=== PATIENT | female | born 1995 | race Caucasian/White ===

== ENCOUNTER 2016-12-23 20:57 | Emergency (ER) | payer OTHER ==
[~2016-12-23] VITALS: Ht 152.4 cm; Wt 51.9 kg
[~2016-12-23 20:57] MED LIST: IBUP-1050 PO
[2016-12-23 21:03] VITALS: TEMP 36.8; Ht 152.4 cm; Wt 51.9 kg
[2016-12-23] MEDS ORDERED: ONDANSETRON INJ 2 MG/ML 2 ML VIAL IV STA (21:11)
[2016-12-23] MEDS ORDERED: MoRPHine SULFATE 4 MG/ML 1 ML CARP\\VIAL IV STA (21:11)
[2016-12-23] MEDS ORDERED: CYCL5TAB PO (21:34)
[2016-12-23] MEDS ORDERED: IBUP-1428 PO (21:34)
[2016-12-23 21:40] LABS: BASO % 0.3 %; BASO ABS # 0.03 K/uL (0-0.2); COMPLETE YES; EOS % 3.6 %; HEMATOCRIT 36.1 % (37-47); IG% 0.2 %; LYMPH % 33.8 %; MEAN CELL VOLUME 87.4 fL (80-100); MEAN CORPUSCULAR HEMOGLOBIN 29.1 pg (25-34); MEAN CORPUSCULAR HGB CONC 33.2 g/dl (32-36); MEAN PLATELET VOLUME 9.3 fL (7.4-10.4); NEUT % 58.1 %; PLATELET COUNT 454 K/uL (130-400); RED BLOOD COUNT 4.13 M/uL (4.2-5.4); WHITE BLOOD COUNT 10.36 K/uL (4.8-10.8)
--- NOTE | 2016-12-23 21:57 | DIAGNOSTIC IMAGING REPORT ---
CT SCAN OF THE ABDOMEN AND PELVIS WITHOUT CONTRAST CLINICAL HISTORY: Right flank pain COMPARISON STUDY: No previous studies for comparison. TECHNIQUE: CT scan of the abdomen and pelvis was performed from the lung bases to the proximal femurs. Images are reviewed in the axial, sagittal, and coronal planes. IV contrast was not administered for this examination. CT DOSE: 323.94 mGy.cm FINDINGS: Lower chest: The heart is normal in size and configuration, without pericardial effusion. The lung bases and pleural spaces are clear. Liver: The unenhanced liver is normal in size, contour, and attenuation. There is no intrahepatic biliary ductal dilatation. Gallbladder: Contracted Spleen: Normal in size and attenuation. Pancreas: Unremarkable. Adrenal glands: Unremarkable. Kidneys: No renal, ureteral, or bladder calculi are visualized. Bowel: There are no transition zones indicate bowel obstruction. There is a low-lying cecum. The appendix is difficult to visualize with certainty although portions of the appendix appeared to be visualized on coronal reformatted images. There are no findings to indicate acute appendicitis given the limitations of a noncontrast study. Peritoneum: There is no intraperitoneal free air or abdominal ascites. Vasculature: The abdominal aorta is normal in course and caliber. Adenopathy: None. Pelvic viscera: The bladder, and pelvic viscera are unremarkable. Skeletal structures: There is bilateral L5 spondylolysis. There is a grade 1 spondylolisthesis of L5 on S1. IMPRESSION: 1. Study limited by the lack of intravenous and oral contrast 2. No evidence of bowel obstruction. No evidence of free air 3. No renal, ureteral, or bladder calculi identified 4. No evidence of acute appendicitis Electronically signed by: Miki Trammell M.D. 12/23/2016 9:56 PM Dictated Date/Time: 12/23/2016 9:51 PM
[2016-12-23 21:59] LABS: ALT/SGPT 28 U/L (12-78); BLOOD UREA NITROGEN 24 mg/dl (7-18); BUN/CREATININE RATIO 24.1 (10-20); CALCIUM 8.8 mg/dl (8.5-10.1); CARBON DIOXIDE 26 mmol/L (21-32); CHLORIDE 103 mmol/L (98-107); CREATININE 0.99 mg/dl (0.60-1.20); GLUCOSE 83 mg/dl (70-99); POTASSIUM 3.8 mmol/L (3.5-5.1); SODIUM 139 mmol/L (136-145)
[2016-12-23 22:02] LABS: ALKALINE PHOSPHATASE 71 U/L (45-117); AST/SGOT 17 U/L (15-37)
[2016-12-23] MEDS ORDERED: BCPILLS PO (22:08)
[2016-12-23 22:20] LABS: URINE APPEARANCE CLEAR (CLEAR); URINE BILIRUBIN NEG (NEG); URINE COLOR YELLOW; URINE EPITHELIAL CELL AUTO >30 /lpf (0-5); URINE NITRITE NEG (NEG); URINE SPECIFIC GRAVITY 1.029 (1.000-1.030); UROBILINOGEN NEG (NEG)
[2016-12-23 22:27] LABS: MANUAL MICROSCOPIC REQUIRED? NO; REVIEW REQ? NO
[2016-12-23] MEDS ORDERED: SULFAMETHOXAZOLE/TRIMETHOPRIM DS 800/160MG TAB PO STA (22:30)
[2016-12-23] MEDS ORDERED: SULF800T23 PO (22:32)
[2016-12-23 22:43] VITALS: BP 110/77; PULSE 86; O2SAT 97
--- NOTE | 2016-12-23 23:14 | EMERGENCY ROOM VISIT NOTE ---
History Report prepared by Tonio: Valarie No Under the Supervision of: Dr. Reji Garvey M.D. First contact with patient: 21:07 Chief Complaint: FLANK PAIN Stated Complaint: PAIN IN RIGHT SIDE AND BACK History of Present Illness The patient is a 21 year old female who presents to the Emergency Room with complaints of persistent right sided flank pain that started a few hours prior to arrival. She states the pain started after she ate dinner. She rates her discomfort as an 8/10 and reports the pain radiates into her right hip and down her right leg. The pain feels "dull", but is occasionally "sharp" in nature. She denies ever feeling similar pain before. The patient denies any fevers, nausea, vomiting, diarrhea, rectal bleeding or urinary symptoms. She has no history of kidney stones or previous surgeries on her abdomen. She denies any chance of being . She denies any abnormal vaginal discharge or bleeding. Source of History: patient Onset: few hours [employer] Position: back Symptom Intensity: 8/10 Quality: sharp, dull Timing: other (persistent) Associated Symptoms: No diarrhea, No nausea, No urinary symptoms, No vomiting Review of Systems See HPI for pertinent positives & negatives. A total of 10 systems reviewed and were otherwise negative. Past Medical & Surgical Medical Problems: (1) Low back pain Family History Cancer Heart disease Social History Smoking Status: Never Smoker Drug Use: none Marital Status: in relationship Housing Status: lives with family Occupation Status: employed Current/Historical Medications Scheduled Control Pills ( Control Pills), 1 TAB PO DAILY Sulfa/Trimethoprim (Bactrim Ds 800MG/160MG), 1 TAB PO BID Scheduled PRN Cyclobenzaprine Hcl (Flexeril), 5 MG PO TID PRN for Muscle Spasm Ibuprofen (Advil), 400-600 MG PO Q6H PRN for Headache or Pain Ibuprofen (Motrin), 800 MG PO TID PRN for Pain Allergies Coded Allergies: No Known Allergies (Unverified , 05/07/16) Physical Exam Vital Signs Date Time Temp Pulse Resp B/P Pulse Ox O2 Delivery O2 Flow Rate FiO2 12/23/16 22:43 86 16 110/77 97 12/23/16 21:03 36.8 105 18 118/59 99 Room Air Physical Exam Constitutional: Vital signs reviewed. Eyes: Pupils are equal round reactive to light. Conjunctiva are noninjected. ENT: Pharynx is clear without erythema or exudate. Mucous membranes are moist. Neck supple without meningeal signs. Respiratory: Clear to auscultation bilaterally. Breath sounds are equal bilaterally. Cardiovascular: Regular rate and rhythm. No rubs or gallops. GI: Soft, nondistended mild right-sided tenderness without guarding. Bowel sounds are present. Musculoskeletal: No peripheral edema. No midline tenderness to the thoracic or lumbosacral spine. Mild right-sided CVA tenderness. Integumentary: No cyanosis. Neurological: The patient is awake and alert. No focal deficits. Psychiatric: Normal affect. Medical Decision & Procedures ER Provider Diagnostic Interpretation: This CT scan was reviewed and interpreted by the radiologist and reviewed by myself. CT SCAN OF THE ABDOMEN AND PELVIS WITHOUT CONTRAST CLINICAL HISTORY: Right flank pain COMPARISON STUDY: No previous studies for comparison. TECHNIQUE: CT scan of the abdomen and pelvis was performed from the lung bases to the proximal femurs. Images are reviewed in the axial, sagittal, and coronal planes. IV contrast was not administered for this examination. CT DOSE: 323.94 mGy.cm FINDINGS: Lower chest: The heart is normal in size and configuration, without pericardial effusion. The lung bases and pleural spaces are clear. Liver: The unenhanced liver is normal in size, contour, and attenuation. There is no intrahepatic biliary ductal dilatation. Gallbladder: Contracted Spleen: Normal in size and attenuation. Pancreas: Unremarkable. Adrenal glands: Unremarkable. Kidneys: No renal, ureteral, or bladder calculi are visualized. Bowel: There are no transition zones indicate bowel obstruction. There is a low-lying cecum. The appendix is difficult to visualize with certainty although portions of the appendix appeared to be visualized on coronal reformatted images. There are no findings to indicate acute appendicitis given the limitations of a noncontrast study. Peritoneum: There is no intraperitoneal free air or abdominal ascites. Vasculature: The abdominal aorta is normal in course and caliber. Adenopathy: None. Pelvic viscera: The bladder, and pelvic viscera are unremarkable. Skeletal structures: There is bilateral L5 spondylolysis. There is a grade 1 spondylolisthesis of L5 on S1. IMPRESSION: 1. Study limited by the lack of intravenous and oral contrast 2. No evidence of bowel obstruction. No evidence of free air 3. No renal, ureteral, or bladder calculi identified 4. No evidence of acute appendicitis Electronically signed by: Miki Trammell M.D. 12/23/2016 9:56 PM Laboratory Results 12/23/16 21:30 Red Blood Count 4.13, Mean Corpuscular Volume 87.4, Mean Corpuscular Hemoglobin 29.1, Mean Corpuscular Hemoglobin Concent 33.2, Mean Platelet Volume 9.3, Neutrophils (%) (Auto) 58.1, Lymphocytes (%) (Auto) 33.8, Monocytes (%) (Auto) 4.0, Eosinophils (%) (Auto) 3.6, Basophils (%) (Auto) 0.3, Neutrophils # (Auto) 6.03, Lymphocytes # (Auto) 3.50, Monocytes # (Auto) 0.41, Eosinophils # (Auto) 0.37, Basophils # (Auto) 0.03 12/23/16 21:30 Test 12/23/16 21:15 12/23/16 21:30 Urine Color YELLOW Urine Appearance CLEAR (CLEAR) Urine pH 6.0 (4.5-7.5) Urine Specific [place] 1.029 (1.000-1.030) Urine Protein NEG (NEG) Urine Glucose (UA) NEG (NEG) Urine Ketones NEG (NEG) Urine Occult Blood TRACE (NEG) Urine Nitrite NEG (NEG) Urine Bilirubin NEG (NEG) Urine Urobilinogen NEG (NEG) Urine Leukocyte Esterase SMALL (NEG) Urine WBC (Auto) 10-30 /hpf (0-5) Urine RBC (Auto) 0-4 /hpf (0-4) Urine Hyaline Casts (Auto) 1-5 /lpf (0-5) Urine Epithelial Cells (Auto) >30 /lpf (0-5) Urine Bacteria (Auto) 1+ (NEG) Urine Test NEG (NEG) White Blood Count 10.36 K/uL (4.8-10.8) Red Blood Count 4.13 M/uL (4.2-5.4) Hemoglobin 12.0 g/dL (12.0-16.0) Hematocrit 36.1 % (37-47) Mean Corpuscular Volume 87.4 fL (80-100) Mean Corpuscular Hemoglobin 29.1 pg (25-34) Mean Corpuscular Hemoglobin Concent 33.2 g/dl (32-36) Platelet Count 454 K/uL (130-400) Mean Platelet Volume 9.3 fL (7.4-10.4) Neutrophils (%) (Auto) 58.1 % Lymphocytes (%) (Auto) 33.8 % Monocytes (%) (Auto) 4.0 % Eosinophils (%) (Auto) 3.6 % Basophils (%) (Auto) 0.3 % Neutrophils # (Auto) 6.03 K/uL (1.4-6.5) Lymphocytes # (Auto) 3.50 K/uL (1.2-3.4) Monocytes # (Auto) 0.41 K/uL (0.11-0.59) Eosinophils # (Auto) 0.37 K/uL (0-0.5) Basophils # (Auto) 0.03 K/uL (0-0.2) RDW Standard Deviation 40.8 fL (36.4-46.3) RDW Coefficient of Variation 12.7 % (11.5-14.5) Immature Granulocyte % (Auto) 0.2 % Immature Granulocyte # (Auto) 0.02 K/uL (0.00-0.02) Anion Gap 10.0 mmol/L (3-11) Est Creatinine Clear Calc Drug Dose 63.5 ml/min Estimated GFR () 93.1 Estimated GFR (Non- 80.3 BUN/Creatinine Ratio 24.1 (10-20) Calcium Level 8.8 mg/dl (8.5-10.1) Total Bilirubin 0.3 mg/dl (0.2-1) Direct Bilirubin < 0.1 mg/dl (0-0.2) Aspartate Amino Transf (AST/SGOT) 17 U/L (15-37) Alanine Aminotransferase (ALT/SGPT) 28 U/L (12-78) Alkaline Phosphatase 71 U/L (45-117) Total Protein 7.9 gm/dl (6.4-8.2) Albumin 3.5 gm/dl (3.4-5.0) Lipase 298 U/L (73-393) Laboratory results as reviewed by me. Medications Administered Medications (Trade) Dose Ordered Sig/Mitra Route Start Time Stop Time Status Last Admin Dose Admin Morphine Sulfate (MoRPHine SULFATE INJ) 4 mg ONE STAT IV 12/23/16 21:11 12/23/16 21:12 DC 12/23/16 21:30 4 MG Ondansetron HCl (Zofran Inj) 4 mg NOW STAT IV 12/23/16 21:11 12/23/16 21:12 DC 12/23/16 21:30 4 MG Trimethoprim/ Sulfamethoxazole (Septra Ds 800/ 160MG Tab) 1 tab NOW STAT PO 12/23/16 22:30 12/23/16 22:31 DC 12/23/16 22:40 1 TAB ED Course 2107: The patient was evaluated in room B9. A complete history and physical exam was performed. 2110: Zofran 4 mg IV, Morphine Sulfate 4 mg IV. 2214: I reevaluated the patient. She is feeling better. I discussed her results with her. 2229: I reevaluated the patient. I discussed her urine results. I also discussed her discharge instructions and she verbalized complete understanding and agreement. 2229: Septra Ds 800 mg/160 mg 1 tab PO. Medical Decision This is a 21-year-old female who presents with right flank pain. Differential diagnosis includes kidney stone, UTI, pyelonephritis, strain, appendicitis, gallbladder disease, lumbar disc disease. I did perform a limited focused review of portions of the patient's old chart on the electronic medical record. The patient has had no recent pertinent visits to this hospital. I did evaluate the patient as noted above. The patient is presenting with right flank pain. She has some minimal right CVA tenderness but denies any urinary symptoms. She does state that occasionally the pain radiates down her right leg which may suggest a musculoskeletal etiology such as lumbar radiculopathy. She denies any trauma and has no midline tenderness to the thoracic or lumbosacral spine. IV access was established. I did treat patient with IV morphine and Zofran. I did order and personally review the patient's urinalysis as described above. The results are equivocal. I did order a urine culture. Urine test is negative. I did treat her with Bactrim. I did order and review the patient's blood work as noted in the electronic medical record. I did order a CT of the abdomen and pelvis. I did review the images myself as well as the radiology report as described above. There is no evidence of appendicitis or kidney stone. I did reassess patient. She is feeling better. I did discuss the test results with her. I did recommend close follow up with her doctor. She will continue anti-inflammatories at home. She was given return instructions as outlined below and a prescription for Bactrim. Impression Primary Impression: Right flank pain Additional Impression: UTI (urinary tract infection) Scribe Attestation The scribe's documentation has been prepared under my direct and personally reviewed by me in its entirety. I confirm that the note above accurately reflects all work, treatment, procedures, and medical decision making performed by me. Departure Information Dispostion Home / Self-Care Prescriptions Sulfa/Trimethoprim (Bactrim Ds 800MG/160MG) Tab 1 TAB PO BID, #14 TAB Prov: Reji Garvey M.D. 12/23/16 Referrals No Doctor, Assigned (PCP) Patient Instructions ED Flank Pain Uncertain Cause, My [facility] Additional Instructions You have been examined and treated today on an emergency basis only. This is not a substitute for, or an effort to provide, complete comprehensive medical care. It is impossible to recognize and treat all injuries or illnesses in a single emergency department visit. It is therefore important that you follow up closely with your physician. Call as soon as possible for an appointment. Return for worsening symptoms or if you develop fever, vomiting, numbness or weakness in your legs or any other concerning symptoms. Problem Qualifiers Additional Impression: UTI (urinary tract infection) Urinary tract infection type: site unspecified
== END 2016-12-23 22:44 | disposition home or self-care (01) ==
LOC: C.EDB 20:58
DX: N39.0 Urinary tract infection, site not specified (principal)

== ENCOUNTER 2017-01-22 16:21 | Emergency (ER) | payer OTHER ==
[~2017-01-22] VITALS: Ht 152.4 cm; Wt 52.3 kg
[~2017-01-22 16:21] MED LIST changes: +BCPILLS PO; +CYCL5TAB PO; +IBUP-1428 PO; +SULF800T23 PO
[2017-01-22 16:32] VITALS: TEMP 36.7; Ht 152.4 cm; Wt 52.3 kg
[2017-01-22 18:20] VITALS: BP 109/59; PULSE 103; O2SAT 99
[2017-01-22 18:40] LABS: HEMATOCRIT 35.1 % (37-47); MEAN CELL VOLUME 86.7 fL (80-100); MEAN CORPUSCULAR HEMOGLOBIN 28.9 pg (25-34); MEAN CORPUSCULAR HGB CONC 33.3 g/dl (32-36); MEAN PLATELET VOLUME 9.2 fL (7.4-10.4); PLATELET COUNT 366 K/uL (130-400); RED BLOOD COUNT 4.05 M/uL (4.2-5.4)
[2017-01-22 18:48] LABS: URINE APPEARANCE TURBID (CLEAR); URINE BILIRUBIN NEG (NEG); URINE COLOR DK YELLOW; URINE EPITHELIAL CELL AUTO >30 /lpf (0-5); URINE NITRITE NEG (NEG); URINE PH 8.5 (4.5-7.5); URINE SPECIFIC GRAVITY 1.036 (1.000-1.030); UROBILINOGEN NEG (NEG); ZZUR CULT IF INDIC CLEAN CATCH NO
[2017-01-22 18:51] LABS: MANUAL MICROSCOPIC REQUIRED? NO; REVIEW REQ? NO
[2017-01-22 18:52] LABS: SULFASALICYLIC ACID POS (NEG)
[2017-01-22 18:57] LABS: BUN/CREATININE RATIO 16.9 (10-20); CALCIUM 8.9 mg/dl (8.5-10.1); CREATININE 0.79 mg/dl (0.60-1.20); POTASSIUM 3.9 mmol/L (3.5-5.1)
--- NOTE | 2017-01-22 19:01 | DIAGNOSTIC IMAGING REPORT ---
Right upper quadrant ultrasound GALLBLADDER-ABD LIMITED CLINICAL HISTORY: RUQ pain pain. Nausea. TECHNIQUE: Ultrasound COMPARISON STUDY: None FINDINGS: Contracted gallbladder possibly in part due to a recent meal. 5 mm gallbladder polyp. No shadowing gallstones. Common bile duct 4 mm. Liver is uniform throughout. Right kidney is negative for hydronephrosis. IMPRESSION: 1. Contracted gallbladder possibly due to a recent meal. 2. Small gallbladder polyp. 3. Otherwise negative study Electronically signed by: Terry Reno M.D. 01/22/2017 7:00 PM Dictated Date/Time: 01/22/2017 6:58 PM
[2017-01-22 19:09] LABS: BASO % 0.3 %; BASO ABS # 0.02 K/uL (0-0.2); COMPLETE YES; EOS % 4.2 %; IG% 0.1 %; LYMPH % 33.8 %; MONO % 6.5 %; NEUT % 55.1 %
--- NOTE | 2017-01-22 19:29 | EMERGENCY ROOM VISIT NOTE ---
History First contact with patient: 18:02 Chief Complaint: HIP PAIN Stated Complaint: RT SIDE & HIP PAIN History of Present Illness The patient is a 21 year old female who presents to the Emergency Room with complaints of pain under her right rib which radiates down the right side into the hip. The patient states that her her symptoms began 2 days ago and worsened yesterday. She states that she has a constant, dull pain with intermittent sharp pains. She rates it an 8/10. She denies any recent trauma or new exercise. She does report that she carries her 2-year-old son on the right side. She denies any urinary symptoms. Her last menstrual period was 2 weeks ago. The patient denies any nausea or vomiting. She is a smoker. She denies any history or family history of blood clots. The patient does report that she was seen here approximately one month ago for similar symptoms and at that time she was told she may have a urinary tract infection and was placed on antibiotics for this. Review of Systems A complete 10-point Review of Systems was discussed with the patient, with pertinent positives and negatives listed in the History of Present Illness. All remaining Review of Systems questions can be considered negative unless otherwise specified. Past Medical/Surgical History Medical Problems: (1) Low back pain Family History Cancer Heart disease Social History Smoking Status: Current Every Day Smoker Drug Use: none Marital Status: in relationship Housing Status: lives with family Occupation Status: employed Current/Historical Medications Scheduled PRN Cyclobenzaprine Hcl (Flexeril), 5 MG PO TID PRN for Muscle Spasm Ibuprofen (Motrin), 800 MG PO TID PRN for Pain Allergies Coded Allergies: No Known Allergies (Unverified , 05/07/16) Physical Exam Vital Signs Date Time Temp Pulse Resp B/P Pulse Ox O2 Delivery O2 Flow Rate FiO2 01/22/17 18:20 103 18 109/59 99 Room Air 01/22/17 16:32 36.7 100 18 127/78 100 Room Air Physical Exam VITALS: Vitals are noted on the nurse's note and reviewed by myself. Vital signs stable. GENERAL: This is a 21-year-old female, in no acute distress, nondiaphoretic, well-developed well-nourished. SKIN: Capillary reflex less than 2 seconds. HEENT: Normocephalic. PERRLA. EOMI. Nares patent. Mucous membranes moist. Neck is supple without nuchal rigidity. HEART: Regular rate and rhythm without murmurs gallops or rubs. LUNGS: Clear to auscultation bilaterally without wheezes, rales or rhonchi. No retractions or accessory muscle use. ABDOMEN: Positive bowel sounds x 4. Right upper quadrant tenderness. Negative Jane's sign. No guarding or rebound tenderness. NEURO: Patient was alert and oriented to person place and time. Medical Decision & Procedures ER Provider Diagnostic Interpretation: Right upper quadrant ultrasound GALLBLADDER-ABD LIMITED CLINICAL HISTORY: RUQ pain pain. Nausea. TECHNIQUE: Ultrasound COMPARISON STUDY: None FINDINGS: Contracted gallbladder possibly in part due to a recent meal. 5 mm gallbladder polyp. No shadowing gallstones. Common bile duct 4 mm. Liver is uniform throughout. Right kidney is negative for hydronephrosis. IMPRESSION: 1. Contracted gallbladder possibly due to a recent meal. 2. Small gallbladder polyp. 3. Otherwise negative study Laboratory Results 01/22/17 18:20 Red Blood Count 4.05, Mean Corpuscular Volume 86.7, Mean Corpuscular Hemoglobin 28.9, Mean Corpuscular Hemoglobin Concent 33.3, Mean Platelet Volume 9.2, Neutrophils (%) (Auto) 55.1, Lymphocytes (%) (Auto) 33.8, Monocytes (%) (Auto) 6.5, Eosinophils (%) (Auto) 4.2, Basophils (%) (Auto) 0.3, Neutrophils # (Auto) 4.25, Lymphocytes # (Auto) 2.60, Monocytes # (Auto) 0.50, Eosinophils # (Auto) 0.32, Basophils # (Auto) 0.02 01/22/17 18:20 Test 01/22/17 18:20 01/22/17 18:22 White Blood Count 7.70 K/uL (4.8-10.8) Red Blood Count 4.05 M/uL (4.2-5.4) Hemoglobin 11.7 g/dL (12.0-16.0) Hematocrit 35.1 % (37-47) Mean Corpuscular Volume 86.7 fL (80-100) Mean Corpuscular Hemoglobin 28.9 pg (25-34) Mean Corpuscular Hemoglobin Concent 33.3 g/dl (32-36) Platelet Count 366 K/uL (130-400) Mean Platelet Volume 9.2 fL (7.4-10.4) Neutrophils (%) (Auto) 55.1 % Lymphocytes (%) (Auto) 33.8 % Monocytes (%) (Auto) 6.5 % Eosinophils (%) (Auto) 4.2 % Basophils (%) (Auto) 0.3 % Neutrophils # (Auto) 4.25 K/uL (1.4-6.5) Lymphocytes # (Auto) 2.60 K/uL (1.2-3.4) Monocytes # (Auto) 0.50 K/uL (0.11-0.59) Eosinophils # (Auto) 0.32 K/uL (0-0.5) Basophils # (Auto) 0.02 K/uL (0-0.2) RDW Standard Deviation 42.6 fL (36.4-46.3) RDW Coefficient of Variation 13.3 % (11.5-14.5) Immature Granulocyte % (Auto) 0.1 % Immature Granulocyte # (Auto) 0.01 K/uL (0.00-0.02) Red Blood Cell Morphology Unremarkable D-Dimer 260 ug/L FEU (0-500) Anion Gap 3.0 mmol/L (3-11) Est Creatinine Clear Calc Drug Dose 79.6 ml/min Estimated GFR () 122.3 Estimated GFR (Non- 105.5 BUN/Creatinine Ratio 16.9 (10-20) Calcium Level 8.9 mg/dl (8.5-10.1) Total Bilirubin 0.2 mg/dl (0.2-1) Aspartate Amino Transf (AST/SGOT) 15 U/L (15-37) Alanine Aminotransferase (ALT/SGPT) 21 U/L (12-78) Alkaline Phosphatase 54 U/L (45-117) Total Protein 7.5 gm/dl (6.4-8.2) Albumin 3.7 gm/dl (3.4-5.0) Globulin 3.8 gm/dl (2.5-4.0) Albumin/Globulin Ratio 1.0 (0.9-2) Lipase 217 U/L (73-393) Urine Color DK YELLOW Urine Appearance TURBID (CLEAR) Urine pH 8.5 (4.5-7.5) Urine Specific [place] 1.036 (1.000-1.030) Urine Protein 1+ (NEG) Urine Glucose (UA) NEG (NEG) Urine Ketones TRACE (NEG) Urine Occult Blood NEG (NEG) Urine Nitrite NEG (NEG) Urine Bilirubin NEG (NEG) Urine Urobilinogen NEG (NEG) Urine Leukocyte Esterase TRACE (NEG) Urine WBC (Auto) 1-5 /hpf (0-5) Urine RBC (Auto) 0-4 /hpf (0-4) Urine Hyaline Casts (Auto) 5-10 /lpf (0-5) Urine Epithelial Cells (Auto) >30 /lpf (0-5) Urine Bacteria (Auto) NEG (NEG) Urine Test NEG (NEG) ED Course The patient was evaluated as above. Labs were drawn and IV access was obtained. Right upper quadrant ultrasound was performed and read by radiology as above. Discharge instructions were reviewed with the patient. The patient verbalized understanding of my assessment and treatment plan and was discharged home in good condition. Medical Decision Differential diagnosis includes cholecystitis, gastroenteritis, musculoskeletal pain, pulmonary embolism, urinary tract infection, among others. The patient is a 21-year-old female who presents today complaining of right upper quadrant/right rib pain. Labs revealed no leukocytosis, anemia or concerning electrolyte abnormalities. Urinalysis was not suggestive of infection. Urine was negative. D-dimer was negative. Right upper quadrant ultrasound was performed and was unremarkable. The patient has previously been seen here for similar symptoms and had a CT scan which was normal. I feel her pain is most likely musculoskeletal. She should follow-up with her primary care provider for further evaluation of this. The patient's case was reviewed with Dr. Latham, ED attending physician, who agreed with my assessment and treatment plan. Based on the patient's presentation and work up, I feel the patient is stable for outpatient treatment. The patient was educated to the emergency department for any worsening of their current condition or new/concerning symptoms. The patient will follow up with her primary care provider this week. Impression Primary Impression: Right flank pain Departure Information Dispostion Home / Self-Care Condition GOOD Referrals Susu Gonzalez, C.R.N.P. (PCP) Patient Instructions My [facility] Additional Instructions You have been treated in the Emergency Department for right rib/abdominal pain. Laboratory results and imaging studies have ruled out any emergent causes for your abdominal pain which would warrant admission or surgery. For pain control, you can use the following driz-dbr-fienxps medicines (if >12 yo): - Regular strength (325mg/tab) Tylenol (acetaminophen) 2 tabs every 4-6 hours as needed. Do not exceed 12 tablets in a 24 hour period. Avoid taking more than 4 grams (4000 mg) of Tylenol per day. This includes any other sources of acetaminophen you may take on a regular basis. - Regular strength (200 mg/tab) Advil (ibuprofen) 1-2 tabs every 4-6 hours as needed. Do not exceed a dose of 3200 mg per day. Drink plenty of water and stay well hydrated. Follow-up with your primary care provider within one week. Return to the emergency department if your symptoms persist despite treatment plan outlined above or if you develop any new/concerning symptoms.
== END 2017-01-22 19:38 | disposition home or self-care (01) ==
LOC: C.EDB 16:23
DX: M25.551 Pain in right hip (principal); F17.200 Nicotine dependence, unspecified, uncomplicated

== ENCOUNTER → 2017-02-12 | Outpatient (CLI) | payer OTHER ==
[~2017-02-12] MED LIST changes: -IBUP-1050 PO; -SULF800T23 PO
--- NOTE | 2017-02-12 19:52 | DIAGNOSTIC IMAGING REPORT ---
LEFT TIBIA AND FIBULA 2 VIEWS CLINICAL HISTORY: Left leg injury. FINDINGS: AP and lateral views of the left tibia and fibula are obtained. No prior studies are available for comparison at the time of dictation. The skeletal structures are well mineralized. No fracture is seen. The knee and ankle joints are grossly maintained. Pretibial soft tissue edema is noted. No radiodense foreign body is identified. IMPRESSION: Pretibial soft tissue swelling with no acute bony abnormality identified. Electronically signed by: Shashi Lopez M.D. 02/12/2017 7:51 PM Dictated Date/Time: 02/12/2017 7:50 PM
== END | disposition home or self-care (01) ==
LOC: C.RAD 16:58
PROVIDERS: ATTEND Nurse Practitioner
DX: S89.92XA Unspecified injury of left lower leg, initial encounter (principal); X58.XXXA Exposure to other specified factors, initial encounter; M79.89 Other specified soft tissue disorders

== ENCOUNTER 2017-02-17 19:55 | Emergency (ER) | payer OTHER ==
[~2017-02-17] VITALS: Ht 152.4 cm; Wt 52.2 kg
[~2017-02-17 19:55] MED LIST changes: -BCPILLS PO
[2017-02-17 20:01] VITALS: TEMP 36.6; Ht 152.4 cm; Wt 52.2 kg
--- NOTE | 2017-02-17 20:30 | EMERGENCY ROOM VISIT NOTE ---
History Report prepared by Tonio: Leonid Reese Under the Supervision of: Dr. John Mckee D.O. First contact with patient: 20:10 Chief Complaint: LEG PAIN,LEG INJURY Stated Complaint: L LEG AND OLGA LIDIA PAIN, SWELLING History of Present Illness The patient is a 21 year old female who presents to the Emergency Room with complaints of worsening left lower leg bruising beginning six days prior to arrival. She currently rates her discomfort as a 9/10 in severity. The patient associates left leg pain and intermittent left toes numbness with today's symptoms. She states that she was evaluated five days ago by her doctor. The patient notes her x-rays came back negative. She states she originally hit her left spence off of a trailer. The patient notes she noticed bruising following the incident, but yesterday she saw more bruising towards her ankle. She denies any other medical concerns at this time. Source of History: patient Onset: six days [employer] Position: leg (left lower) Symptom Intensity: 9/10 Quality: other (bruising) Timing: worsening Associated Symptoms: + numbness (intermittent left toes num) Note: Associated symptoms: left leg pain. Review of Systems See HPI for pertinent positives & negatives. A total of 10 systems reviewed and were otherwise negative. Past Medical & Surgical Medical Problems: (1) Low back pain Family History Cancer Heart disease Social History Smoking Status: Current Every Day Smoker Drug Use: none Marital Status: in relationship Housing Status: lives with family Occupation Status: employed Current/Historical Medications Scheduled PRN Cyclobenzaprine Hcl (Flexeril), 5 MG PO TID PRN for Muscle Spasm Ibuprofen (Motrin), 800 MG PO TID PRN for Pain Allergies Coded Allergies: No Known Allergies (Unverified , 02/17/17) Physical Exam Vital Signs Date Time Temp Pulse Resp B/P Pulse Ox O2 Delivery O2 Flow Rate FiO2 02/17/17 20:01 36.6 101 20 122/69 99 Room Air Physical Exam CONSTITUTIONAL/VITAL SIGNS: Reviewed / noted above. GENERAL: Non-toxic in appearance. INTEGUMENTARY: Warm, dry, and [place]. HEAD: Normocephalic. EYES: without scleral icterus or trauma. ENT/OROPHARYNX: clear and moist. LYMPHADENOPATHY/NECK: Is supple without lymphadenopathy or meningismus. RESPIRATORY: Lungs clear and equal. CARDIOVASCULAR: Regular rate and rhythm. GI/ABDOMEN: Soft and nontender. No organomegaly or pulsatile mass. No rebound or guarding. Normal bowel sounds. EXTREMITIES: Small wound in the left mid anterior tibial region with minimal surrounding ecchymosis. Ecchymosis in the left ankle region that likely migrated down from her proximal tibial wound. Minimal edema noted. No evidence of infection. Warm and well perfused. BACK: No CVA tenderness. NEUROLOGICAL: Intact without focal deficits. PSYCHIATRIC: normal affect. MUSCULOSKELETAL: Normally developed with good muscle tone. Medical Decision & Procedures Medications Administered Medications (Trade) Dose Ordered Sig/Mitra Route Start Time Stop Time Status Last Admin Dose Admin Tramadol HCl (Ultram Home Pack) 1 homepack UD ONCE PO 02/17/17 20:45 02/17/17 20:46 DC 02/17/17 20:50 1 HOMEPACK Tramadol HCl (Ultram Tab) 50 mg NOW STAT PO 02/17/17 20:32 02/17/17 20:33 DC 02/17/17 20:50 50 MG ED Course 2013: Previous medical records were reviewed. The patient was evaluated in room B10. A complete history and physical examination was performed. 2030: On reevaluation, the patient is doing well. I discussed the results and findings with the patient. She verbalized agreement of the treatment plan. The patient was discharged home. 2031: Ordered Tramadol HCl 50 mg PO. 2044: Ordered Tramadol HCl 1 homepack PO. Medical Decision Etiologies such as fracture, dislocation, neurovascular compromise, compartment syndrome, soft tissue injury, as well as others were entertained. This is a 21-year-old female who presents to the ED with a chief complaint of ecchymosis in her lower 70. The patient states that she injured the left leg about 6 days ago. She had a large hematoma in the upper anterior tibial region. She states this has subsided. She has a small wound in that same region. There is no evidence of infection. There is no erythema or discharge. The patient now has some swelling and ecchymosis in her left ankle. She was concerned about this and came in for evaluation. Her exam is noted above. There is no suspicion of DVT. The ecchymosis in the left ankle likely migrated down from her hematoma that was in her left upper tibial region. There is otherwise no evidence of infection. The patient did have some x-rays after the injury that were normal. Expectant course is anticipated. The patient is felt to be stable for discharge. Impression Primary Impression: Superficial bruising of ankle Additional Impression: Contusion of left leg Scribe Attestation The scribe's documentation has been prepared under my direction and personally reviewed by me in its entirety. I confirm that the note above accurately reflects all work, treatment, procedures, and medical decision making performed by me. Departure Information Dispostion Home / Self-Care Referrals Susu Gonzalez C.R.N.P. (PCP) Forms HOME CARE DOCUMENTATION FORM, IMPORTANT VISIT INFORMATION Patient Instructions My [facility] Additional Instructions The bruising that is seen in the ankle is related to the upper leg injury earlier in the week. This will subside gradually over time. Watch for infection. Get rechecked in 1 week if symptoms worsen or if you develop calf pain or increased swelling. Problem Qualifiers
[2017-02-17] MEDS ORDERED: TRAMADOL HCL 50 MG TAB PO STA (20:32)
[2017-02-17] MEDS ORDERED: TRAMADOL HCL 50 MG HOME PACK PO ONE (20:45)
[2017-02-17 21:04] VITALS: BP 167/61; PULSE 90; O2SAT 96
[2017-02-17] MEDS ORDERED: BCPILLS PO (21:05)
== END 2017-02-17 21:04 | disposition home or self-care (01) ==
LOC: C.EDB 19:56
DX: S90.02XA Contusion of left ankle, initial encounter (principal); S80.12XA Contusion of left lower leg, initial encounter; S81.802A Unspecified open wound, left lower leg, initial encounter; W22.8XXA Striking against or struck by other objects, initial encounter; M54.5 Low back pain; F17.200 Nicotine dependence, unspecified, uncomplicated

== ENCOUNTER → 2017-04-03 | Outpatient (CLI) | payer OTHER ==
[~2017-04-03] MED LIST changes: +BCPILLS PO; -CYCL5TAB PO; -IBUP-1428 PO
== END | disposition home or self-care (01) ==
LOC: C.PAPS 14:55
PROVIDERS: ATTEND Obstetrics & Gynecology
DX: Z12.4 Encounter for screening for malignant neoplasm of cervix (principal)

== ENCOUNTER → 2017-12-12 | Outpatient (CLI) | payer OTHER | END | disposition home or self-care (01) | LOC: C.LABSPEC 11:09 | PROVIDERS: ATTEND Physician Assistant | DX: Z20.2 Contact with and (suspected) exposure to infections with a predominantly sexual mode of transmission (principal) ==